=== PATIENT | female | born 1970 | race Caucasian/White ===

== ENCOUNTER → 2024-04-07 08:44 | Outpatient (REF) | payer BC, SELFPAY | LOC: HWWDC 08:44 | PROVIDERS: ATTENDING PHYSICIAN Nurse Practitioner Adult Health | DX: Z12.31 Encounter for screening mammogram for malignant neoplasm of breast (principal) | CPT/HCPCS: 77063; 77067 ==

== ENCOUNTER → 2025-06-14 11:39 | Outpatient (REF) | payer BC, SELFPAY | LOC: UCDH 11:39 | PROVIDERS: ATTENDING PHYSICIAN Emergency Medicine | DX: M79.672 Pain in left foot (principal) | CPT/HCPCS: 73630 ==